=== PATIENT | male | born 1960 | race Hispanic/Latino ===

== ENCOUNTER 2016-04-10 06:28 | Observation (INO) | payer OTHER ==
[~2016-04-10 06:28] MED LIST: MARCAINE-EPI 0.25%-1:200,000 INFILTRATI ONE; NACL 0.9% IR ONE; PEPCID PO NR; VERSED IV NR
[2016-04-10] MEDS ORDERED: NACL BACTERIOSTATIC INFILTRATI ONE (06:54)
[2016-04-10] MEDS ORDERED: PEPCID PO NR (07:00)
[2016-04-10] MEDS ORDERED: VERSED IV NR (07:00)
[2016-04-10] MEDS ORDERED: DILAUDID IV PRN (07:02)
--- NOTE | 2016-04-10 07:02 | Anesthesia Day of Surgery ---
Anesthesia Day of Surgery - Day of Surgery Patient Examined: Yes Patient H&P Reviewed: Yes Patient is NPO: Yes
--- NOTE | 2016-04-10 07:02 | Anesthesia Consultation ---
Anesthesia Consult and Med Hx Date of service: 04/10/16 - Airway Anesthetic Teeth Evaluation: Poor ROM Head & Neck: Adequate Mental/Hyoid Distance: Adequate Mallampati Class: Class II Intubation Access Assessment: Probably Good - Pulmonary Exam CTA: Yes - Cardiac Exam Cardiac Exam: RRR - Pre-Operative Health Status ASA Pre-Surgery Classification: ASA2 Proposed Anesthetic Plan: General - Pulmonary Hx Smoking: Yes (1/2 PPD X 35 YRS) Hx Sleep Apnea: No ([place] PRE SCREEN HIGH RISK) - Cardiovascular System Hx Hypertension: No - Central Nervous System Hx Back Pain: Yes (NECK AND BACK PAIN) - Other Systems Hx Cancer: No
[2016-04-10] MEDS: NACL 0.9% 1000 ML 1,000 ML IV SCH ×2 (07:09→21:26)
[2016-04-10] MEDS ORDERED: NEURONTIN PO NR (07:32)
[2016-04-10] MEDS ORDERED: DECADRON ONE (07:48)
[2016-04-10] MEDS ORDERED: MARCAINE-EPI 0.5%-1:200,000 INFILTRATI ONE (07:48)
[2016-04-10] MEDS ORDERED: DIPRIVAN 10 MG/ML IV ONE ×2 (08:27→15:20)
[2016-04-10] MEDS ORDERED: SUBLIMAZE ONE ×2 (09:04→14:57)
[2016-04-10] MEDS ORDERED: ANCEF/STERILE WATER 2 GM/20 ML IV NR (09:39)
[2016-04-10] MEDS ORDERED: NACL 0.9% IR ONE (11:26)
[2016-04-10] MEDS ORDERED: BREVIBLOC IV ONE (14:48)
[2016-04-10] MEDS ORDERED: BLOXIVERZ ONE (14:48)
[2016-04-10] MEDS ORDERED: QUELICIN ONE (14:48)
[2016-04-10] MEDS ORDERED: ROBINUL ONE ×2 (14:48→14:52)
[2016-04-10] MEDS ORDERED: NEO SYNEPHRINE ONE (14:51)
[2016-04-10] MEDS ORDERED: NACL 0.9% 100 ML ONE (14:51)
[2016-04-10] MEDS ORDERED: NACL 0.9% 1000 ML 1,000 ML ONE (14:52)
[2016-04-10] MEDS ORDERED: MARCAINE-EPI 0.25%-1:200,000 INFILTRATI ONE (15:01)
[2016-04-10] MEDS ORDERED: AMBIEN PO PRN (15:04)
[2016-04-10] MEDS ORDERED: ZOFRAN IV PRN (15:04)
[2016-04-10] MEDS ORDERED: PROAIR IH ONE (15:13)
[2016-04-10] MEDS ORDERED: SODIUM CHLORIDE FLUSH SYRINGE 10 ML IV NR ×2 (16:00)
--- NOTE | 2016-04-10 17:31 | Post Anesthesia Evaluation ---
- Post Anesthesia Evaluation Patient Participated: Yes Airway Patent: Yes Stable Respiratory Function: Yes Nausea/Vomiting: No Temp > 96.8F: Yes Pain Manageable: Yes Adequeate Hydration: Yes Anesthesia Complications: No Block Receding Appropriately: Not Applicable Patient on Ventilator: No
[2016-04-10] MEDS ORDERED: ANCEF/NS 1 GM/50 ML 50 ML IV SCH (18:00)
--- NOTE | 2016-04-10 20:16 | Operative Report ---
PREOPERATIVE DIAGNOSIS: Right shoulder with massive recurrent rotator cuff tear with retained suture and anchors with residual impingement. POSTOPERATIVE DIAGNOSIS: Right shoulder with massive recurrent rotator cuff tear with retained suture and anchors with residual impingement. PROCEDURES PERFORMED: 1. Right shoulder with arthroscopy and revision arthroscopic rotator cuff repair - complex. 2. Removal of multiple foreign bodies - sutures and anchors. 3. Revision subacromial decompression. SURGEON: Aj Veliz MD [employer] MARKETING EXECUTIVE: Clive Hall. ANESTHESIA: General plus scalene block. ESTIMATED BLOOD LOSS: Minimal. COMPLICATIONS: None. OPERATIVE PROCEDURE: The patient underwent successful induction of anesthesia. He was carefully positioned in the beach chair position, prepped and draped in usual fashion. Antibiotics were preadministered. There was delay in starting the procedure in securing the graft. It was begun once all the components were available. Arthroscopy was carried out with the standard posterior portal. The entry was made just above the subscapularis. The articular surfaces were relatively well preserved. Subscapularis demonstrated some attenuation. The rotator cuff demonstrated complete tearing of the supraspinatus extending into the infraspinatus with retraction and previous biceps tenodesis. Meticulously mobilization was carried out of existing cuff utilizing combination of elevators and full radius resector. Multiple #2 FiberWire sutures were placed for this mobilization. Laterally, he had marked retention of sutures and anchors. These were meticulously removed. This did leave a porous tuberosity laterally. Consideration was given the possible grafting given the extent of the porosity; however, we were able to place a 6.25 screw with a FiberTape and one more posteriorly with 4.75. With the secured and appropriate mobilization of the cuff, passed through the infraspinatus and of the posterior of the supraspinatus. The anterior was essentially absent. This allowed for excellent coverage with the exception of the anterior third from the existing supraspinatus to allow for an excellent bite into the tissue. This was fixed lateral row with the SpeedBridge technique with an excellent secured fixation being achieved stable throughout range of motion. Intraoperative photographs were obtained of this. This was an extremely complex repair given the prior surgery as well as the necessary requisite to mobilize the cuff appropriately. However, a secure fixation was achieved to at least two thirds to three quarters coverage of the humeral head. This along with a rastafarian of the fluoroscope at the subscapularis was felt to provide an appropriate repair. Arthroscopic ____. The ports were closed with nylon sutures, sterile dressing was applied. The patient was taken to the recovery room in satisfactory condition having tolerated the procedure well. JOB# [id number] MELANIE/JERILYN
[2016-04-10] MEDS: NORCO 5/325 PO PRN (21:05)
--- NOTE | 2016-04-11 00:13 | Consultation ---
History of Present Illness - Reason for Consult Consult date: 04/10/16 Medical management Requesting physician: HARRY LOPEZ - History of Present Illness S/p Rt Shoulder tear repair Post op doing well Past History Past Medical History: hyperlipidemia, other (bph) Past Surgical History: Other (Rt Shoulder tear repair) Social history: lives with family Family history: no significant family history Medications and Allergies Allergies Allergy/AdvReac Type Severity Reaction Status Date / Time No Known Allergies Allergy Verified 03/28/16 09:07 Home Medications Medication Instructions Recorded Confirmed Last Taken Type AtorvaSTATin [Lipitor] 40 mg PO DAILY 04/05/16 04/05/16 1 Day Ago History Doxepin [SINEquan] 25 mg PO QHS 04/05/16 04/05/16 1 Day Ago History Levomilnacipran Hydrochloride 60 mg PO DAILY 04/05/16 04/05/16 1 Day Ago History [Fetzima] Meloxicam [Mobic] 7.5 mg PO BID 04/05/16 04/10/16 03/31/16 History Oxycodone HCl [Oxycodone HCl ER] 30 mg PO 5XD 04/05/16 04/05/16 04/10/16 03:30 History Oxycodone HCl [Oxycontin] 40 mg PO BID 04/05/16 04/05/16 04/10/16 03:30 History Pregabalin [Lyrica] 300 mg PO TID 04/05/16 04/05/16 1 Day Ago History Tamsulosin [Flomax] 0.4 mg PO QDAY 04/05/16 04/05/16 1 Day Ago History Torsemide [Demadex] 10 mg PO QDAY 04/05/16 04/05/16 1 Day Ago History buPROPion [Wellbutrin] 75 mg PO DAILY 04/05/16 04/05/16 1 Day Ago History clonazePAM 1 mg PO TID 04/05/16 04/05/16 04/10/16 03:30 History Aspirin [Adult Low Dose Aspirin EC] 81 mg PO QDAY 04/10/16 04/10/16 2 Weeks Ago History Active Meds: Active Medications Acetaminophen/Hydrocodone Bitart (Viper 5/325) 1 each PO Q6H PRN PRN Reason: Pain, Moderate (4-6) Last Admin: 04/10/16 21:05 Dose: 1 each Sodium Chloride (Nacl 0.9% 1000 Ml) 1,000 mls @ 100 mls/hr IV DIRECT LUKE Last Admin: 04/10/16 21:26 Dose: 100 mls/hr Cefazolin Sodium (Ancef/Ns 1 Gm/50 Ml) 50 mls @ 100 mls/hr IV Q8H LUKE Stop: 04/11/16 02:29 Ondansetron HCl (Zofran) 4 mg IV Q8H PRN PRN Reason: Nausea And Vomiting Sodium Chloride (Sodium Chloride Flush Syringe 10 Ml) 10 ml IV PRN NR Stop: 04/11/16 15:59 Zolpidem Tartrate (Ambien) 5 mg PO QHS PRN PRN Reason: Sleep Review of Systems All systems: negative Exam - Constitutional Vitals: Temp Pulse Resp BP Pulse Ox 98.5 F 107 H 20 133/80 94 04/10/16 16:54 04/10/16 16:54 04/10/16 16:54 04/10/16 16:54 04/10/16 16:15 General appearance: Present: no acute distress, well-nourished - EENT Eyes: Present: PERRL ENT: hearing intact, clear oral mucosa - Neck Neck: Present: supple, normal ROM - Respiratory Respiratory effort: normal Respiratory: bilateral: CTA - Cardiovascular Heart Sounds: Present: S1 & S2. Absent: rub, click - Extremities Extremities: pulses symmetrical, No edema Peripheral Pulses: within normal limits - Abdominal General gastrointestinal: Present: soft, non-tender, non-distended, normal bowel sounds Male genitourinary: Present: normal - Integumentary Integumentary: Present: clear, warm, dry - Musculoskeletal Musculoskeletal: gait normal, strength equal bilaterally - Psychiatric Psychiatric: appropriate mood/affect, intact judgment & insight - Neurologic Neurologic: CNII-XII intact, moves all extremities Results - Labs Labs: Abnormal lab results 04/10/16 04/10/16 Range/Units 07:13 15:35 POC Glucose 143 H 220 H (70-105) Assessment and Plan - Patient Problems (1) Status post surgery Current Visit: Yes Status: Acute Plan to address problem: S/p Rt Shoulder rotator cuff repair (2) BPH (benign prostatic hyperplasia) Current Visit: Yes Status: Chronic Qualifiers: Prostatic enlargement morphology: non-nodular Lower urinary tract symptom presence: symptoms present Qualified Code(s): N40.1 - Benign prostatic hyperplasia with lower urinary tract symptoms Plan to address problem: Cont Tamsulosin (3) HLD (hyperlipidemia) Current Visit: Yes Status: Chronic Qualifiers: Hyperlipidemia type: mixed hyperlipidemia Qualified Code(s): E78.2 - Mixed hyperlipidemia Plan to address problem: Cont statins (4) Pain management Current Visit: Yes Status: Acute Plan to address problem: Dilaudid prn
[2016-04-11] MEDS: NORCO 5/325 PO PRN ×2 (08:27→14:24)
[2016-04-11] MEDS: NACL 0.9% 1000 ML 1,000 ML IV SCH (08:29)
[2016-04-11 09:09] VITALS: BP 143/83
[2016-04-11] MEDS ORDERED: FLOMAX PO SCH (10:00)
[2016-04-11] MEDS ORDERED: DEMADEX PO SCH (10:00)
[2016-04-11] MEDS ORDERED: MOBIC PO SCH (10:00)
[2016-04-11] MEDS ORDERED: HALFPRIN EC PO SCH (10:00)
[2016-04-11] MEDS ORDERED: OxyCONTIN PO SCH (10:00)
[2016-04-11] MEDS ORDERED: WELLBUTRIN PO SCH (10:00)
--- NOTE | 2016-04-11 16:28 | Discharge Summary ---
Providers - Providers Date of Admission: 04/10/16 15:02 Date of discharge: 04/11/16 Attending physician: HARRY LOPEZ 04/10/16 15:04 Consult to Physician [CONS] Routine Consulting Provider: PIYUSH SANDOVAL Reason For Exam: primary care Place consult to:: DR. SANDOVAL Notified:: DR. SNADOVAL Was contact made?: Yes If yes, spoke with:: DR. SANDOVAL Comment:: COMPLETED - GEOVANI Primary care physician: RNP Hospitalization Disposition: DC/[place] HOME UNDER HOME HEALTH - Discharge Diagnoses (1) Status post surgery Status: Acute (2) BPH (benign prostatic hyperplasia) Status: Chronic Qualifiers: Prostatic enlargement morphology: non-nodular Lower urinary tract symptom presence: symptoms present Qualified Code(s): N40.1 - Benign prostatic hyperplasia with lower urinary tract symptoms (3) HLD (hyperlipidemia) Status: Chronic Qualifiers: Hyperlipidemia type: mixed hyperlipidemia Qualified Code(s): E78.2 - Mixed hyperlipidemia (4) Pain management Status: Acute Core Measure Documentation - Palliative Care Palliative Care/ Comfort Measures: Not Applicable - Core Measures Any of the following diagnoses?: none Exam - Constitutional Vitals: Temp Pulse Resp BP Pulse Ox 98.7 F 110 H 20 143/83 96 04/11/16 09:00 04/11/16 09:00 04/11/16 14:24 04/11/16 09:00 04/11/16 09:00 General appearance: Present: no acute distress, well-nourished - EENT Eyes: Present: PERRL ENT: hearing intact, clear oral mucosa - Neck Neck: Present: supple, normal ROM - Respiratory Respiratory effort: normal Respiratory: bilateral: CTA - Cardiovascular Heart Sounds: Present: S1 & S2. Absent: rub, click - Extremities Extremities: pulses symmetrical, No edema Peripheral Pulses: within normal limits - Abdominal General gastrointestinal: Present: soft, non-tender, non-distended, normal bowel sounds Male genitourinary: Present: normal - Integumentary Integumentary: Present: clear, warm, dry - Musculoskeletal Musculoskeletal: gait normal, strength equal bilaterally - Psychiatric Psychiatric: appropriate mood/affect, intact judgment & insight - Neurologic Neurologic: CNII-XII intact, moves all extremities Plan Weight Bearing Status: Weight Bear as Tolerated Diet: regular
[2016-04-11] MEDS ORDERED: SINEquan PO SCH (22:00)
== END 2016-04-11 16:45 | disposition home health service (06) ==
LOC: OR 06:28 → 2B-SURG 15:02
PROVIDERS: ADMIT Orthopaedic Surgery; ATTEND Orthopaedic Surgery
DX: M75.101 Unspecified rotator cuff tear or rupture of right shoulder, not specified as traumatic (principal); E78.5 Hyperlipidemia, unspecified; N40.1 Benign prostatic hyperplasia with lower urinary tract symptoms; Z98.890 Other specified postprocedural states
CPT/HCPCS: 29826; 29827; 29828; 82962; 96365; A4217; A9270; C1713; G0378; J0330; J0690; J1100; J2250; J2370; J2704; J2710; J3010; J7030